=== PATIENT | female | born 1940 | race Caucasian/White ===

== ENCOUNTER 2022-07-23 12:55 | Inpatient (IN) ==
[2022-07-23] MEDS ORDERED: ONDANSETRON 4 MG/2 ML VIAL ONE (12:58)
[2022-07-23] MEDS ORDERED: SODIUM CHLORIDE 0.9% 1,000 ML IV STA (13:08)
[2022-07-23] MEDS ORDERED: ONDANSETRON 4 MG/2 ML VIAL IV STA (13:08)
[2022-07-23] MEDS ORDERED: PANTOPRAZOLE 40 MG VIAL IV STA (13:08)
[2022-07-23 13:19] LABS: Basophils # 0.1 10*3/uL (0.0-0.2); Basophils % 0.5 % (0.0-0.8); Eosinophils % 0.4 % (0.00-10.9); Hematocrit 30.6 VOL% (35.7-47.0); Hemoglobin 9.8 GM/DL (12.0-16.0); Immature Granulocytes Absolute 0.11 #; Lymphocytes # 1.5 10*3/uL (1.4-4.0); Lymphocytes % 13.2 % (21.3-54.2); Mean Corpuscular Volume 94.4 FL (87-102); Mean Platelet Volume 11.4 FL (9.6-12.0); Monocytes # 0.7 10*3/uL (0.11-0.8); Monocytes % 5.7 % (1.7-12.7); Neutrophils % 79.2 % (38.7-73.9); Platelet Count 376 T/CUMM (130-400); Red Blood Count 3.24 MC/CUMM (3.8-5.5); White Blood Count 11.4 T/CUMM (4-12)
[2022-07-23 13:33] LABS: Albumin 3.3 G/DL (3.4-5.0); Bilirubin,Total 0.6 MG/DL (0.20-1.00); Calcium 10.3 MG/DL (8.5-10.1); Potassium 4.7 MMOL/L (3.5-5.1)
[2022-07-23 14:08] LABS: INR 1.1; PT Patient Result 11.6 SECS (10.1-12.1)
[2022-07-23] MEDS ORDERED: ACETAMINOPHEN 325 MG TABLET PO PRN (15:11)
[2022-07-23] MEDS: ONDANSETRON 4 MG/2 ML VIAL IV PRN (15:47)
[2022-07-23 17:13] LABS: % Iron Saturation 25.3 % (18-50); Ferritin 45.9 ng/mL (8-252)
[2022-07-23] MEDS: DEXTROSE 5% NACL 0.45% 1,000 ML IV SCH (18:29)
[2022-07-23] MEDS: PANTOPRAZOLE 40 MG VIAL IV SCH (20:33)
[2022-07-23] MEDS: ZALEPLON 5 MG CAPSULE PO PRN (20:37)
[2022-07-24] MEDS: DEXTROSE 5% NACL 0.45% 1,000 ML IV SCH ×3 (06:02→17:00)
[2022-07-24 07:53] LABS: Basophils # 0.1 10*3/uL (0.0-0.2); Basophils % 0.8 % (0.0-0.8); Eosinophils # 0.1 10*3/uL (0.0-0.87); Eosinophils % 1.8 % (0.00-10.9); Hematocrit 23.1 VOL% (35.7-47.0); Hemoglobin 7.7 GM/DL (12.0-16.0); Immature Granulocytes % 0.6 %; Immature Granulocytes Absolute 0.04 #; Lymphocytes # 2.2 10*3/uL (1.4-4.0); Lymphocytes % 33.2 % (21.3-54.2); Mean Corpuscular HGB Conc 33.3 GM/DL (32-36); Mean Corpuscular Volume 90.9 FL (87-102); Mean Platelet Volume 11.6 FL (9.6-12.0); Monocytes # 0.8 10*3/uL (0.11-0.8); Neutrophils % 51.6 % (38.7-73.9); Platelet Count 248 T/CUMM (130-400); Red Blood Count 2.54 MC/CUMM (3.8-5.5); Red Cell Distribution Width 14.2 % (9.3-17.3); White Blood Count 6.6 T/CUMM (4-12)
[2022-07-24 08:05] LABS: Albumin 2.7 G/DL (3.4-5.0); Bilirubin,Total 0.4 MG/DL (0.20-1.00); Calcium 9.2 MG/DL (8.5-10.1); Osmolality,Calculated 293.4 MOS/KG (273-304); Potassium 3.9 MMOL/L (3.5-5.1); Total Protein 5.7 G/DL (6.4-8.2)
[2022-07-24] MEDS: ONDANSETRON 4 MG/2 ML VIAL IV PRN ×3 (08:09→19:30)
[2022-07-24] MEDS: PANTOPRAZOLE 40 MG VIAL IV SCH ×2 (09:45→21:20)
[2022-07-24] MEDS: carvediloL 12.5 MG TABLET PO SCH ×2 (10:09→21:20)
[2022-07-24] MEDS: DULoxetine 30 MG CAPSULE PO SCH (10:09)
[2022-07-24] MEDS: LACTATED RINGERS 1,000 ML IV SCH (12:19)
[2022-07-24] MEDS ORDERED: propofoL 200 MG/20 ML VIAL IV ONE (14:08)
[2022-07-24] MEDS ORDERED: ETOMIDATE 20 MG/10 ML VIAL IV ONE (14:08)
[2022-07-24] MEDS ORDERED: LIDOCAINE 2% 5 ML VIAL ONE (14:08)
[2022-07-24] MEDS: ZALEPLON 5 MG CAPSULE PO PRN (21:20)
[2022-07-25] MEDS: DEXTROSE 5% NACL 0.45% 1,000 ML IV SCH ×3 (01:18→18:25)
[2022-07-25 06:08] LABS: Basophils % 0.3 % (0.0-0.8); Eosinophils # 0.1 10*3/uL (0.0-0.87); Eosinophils % 1.6 % (0.00-10.9); Hematocrit 22.1 VOL% (35.7-47.0); Hemoglobin 7.3 GM/DL (12.0-16.0); Immature Granulocytes % 0.6 %; Immature Granulocytes Absolute 0.04 #; Lymphocytes # 1.6 10*3/uL (1.4-4.0); Lymphocytes % 25.2 % (21.3-54.2); Mean Corpuscular Volume 92.9 FL (87-102); Mean Platelet Volume 11.2 FL (9.6-12.0); Monocytes # 0.6 10*3/uL (0.11-0.8); Monocytes % 9.6 % (1.7-12.7); Neutrophils % 62.7 % (38.7-73.9); Platelet Count 232 T/CUMM (130-400); Red Blood Count 2.38 MC/CUMM (3.8-5.5); Red Cell Distribution Width 14.4 % (9.3-17.3); White Blood Count 6.3 T/CUMM (4-12)
[2022-07-25 06:37] LABS: Albumin 2.9 G/DL (3.4-5.0); Bilirubin,Total 0.4 MG/DL (0.20-1.00); Calcium 9.2 MG/DL (8.5-10.1); Osmolality,Calculated 292.8 MOS/KG (273-304); Potassium 3.5 MMOL/L (3.5-5.1); Total Protein 5.7 G/DL (6.4-8.2)
[2022-07-25] MEDS: ONDANSETRON 4 MG/2 ML VIAL IV PRN ×2 (07:45→13:07)
[2022-07-25] MEDS: DULoxetine 30 MG CAPSULE PO SCH (08:31)
[2022-07-25] MEDS: carvediloL 12.5 MG TABLET PO SCH ×2 (08:31→21:26)
[2022-07-25] MEDS: PANTOPRAZOLE 40 MG VIAL IV SCH ×2 (08:32→21:27)
[2022-07-25] MEDS ORDERED: SODIUM CHLORIDE 0.9% 1,000 ML IV PRN (11:39)
[2022-07-25] MEDS: LACTATED RINGERS 1,000 ML IV SCH (18:24)
[2022-07-25] MEDS: ZALEPLON 5 MG CAPSULE PO PRN (21:29)
[2022-07-26 06:17] LABS: Basophils % 0.6 % (0.0-0.8); Eosinophils # 0.1 10*3/uL (0.0-0.87); Eosinophils % 2.2 % (0.00-10.9); Hemoglobin 7.9 GM/DL (12.0-16.0); Immature Granulocytes % 0.6 %; Immature Granulocytes Absolute 0.03 #; Lymphocytes # 1.5 10*3/uL (1.4-4.0); Mean Corpuscular HGB Conc 32.9 GM/DL (32-36); Mean Corpuscular Volume 91.3 FL (87-102); Mean Platelet Volume 11.1 FL (9.6-12.0); Monocytes # 0.7 10*3/uL (0.11-0.8); Monocytes % 13.2 % (1.7-12.7); Neutrophils % 53.4 % (38.7-73.9); Platelet Count 195 T/CUMM (130-400); Red Blood Count 2.63 MC/CUMM (3.8-5.5); Red Cell Distribution Width 15.4 % (9.3-17.3); White Blood Count 5.1 T/CUMM (4-12)
[2022-07-26 06:45] LABS: Albumin 2.9 G/DL (3.4-5.0); Bilirubin,Total 0.6 MG/DL (0.20-1.00); Osmolality,Calculated 288.8 MOS/KG (273-304); Potassium 3.6 MMOL/L (3.5-5.1); Total Protein 5.4 G/DL (6.4-8.2)
[2022-07-26 08:59] VITALS: BP 116/49
[2022-07-26] MEDS: DULoxetine 30 MG CAPSULE PO SCH (09:01)
[2022-07-26] MEDS: carvediloL 12.5 MG TABLET PO SCH (09:01)
[2022-07-26] MEDS: PANTOPRAZOLE 40 MG VIAL IV SCH (09:02)
[2022-07-26] MEDS: DEXTROSE 5% NACL 0.45% 1,000 ML IV SCH (09:08)
== END 2022-07-26 11:30 | disposition home or self-care (01) | DRG 378 ==
LOC: SUATTDRO → N.EDINP 12:55 → N.ED 12:55 → N.EDINP 17:19 → N.2W 17:28 → SUATTDRO 07-25 11:39
PROVIDERS: ADMIT Family Medicine; ATTEND Internal Medicine